=== PATIENT | female | born 1990 | race Caucasian/White ===

== ENCOUNTER → 2017-07-17 | Outpatient (CLI) | payer BC ==
[~2017-07-17] MED LIST: ACET-1256 PO; CETI10TA84 PO; NITR1CAP33 PO; OXYC-57 PO
[2017-07-17 12:34] LABS: BASO % 0.5 %; BASO ABS # 0.03 K/uL (0-0.2); COMPLETE YES; EOS % 1.6 %; HEMATOCRIT 38.3 % (37-47); IG% 0.2 %; LYMPH % 21.7 %; LYMPH ABS # 1.26 K/uL (1.2-3.4); MEAN CELL VOLUME 91.2 fL (80-100); MEAN CORPUSCULAR HEMOGLOBIN 31.7 pg (25-34); MEAN CORPUSCULAR HGB CONC 34.7 g/dl (32-36); MEAN PLATELET VOLUME 10.8 fL (7.4-10.4); MONO % 7.8 %; NEUT % 68.2 %; PLATELET COUNT 193 K/uL (130-400)
--- NOTE | 2017-07-17 12:38 | DIAGNOSTIC IMAGING REPORT ---
CHEST 2 VIEWS ROUTINE, KUB HISTORY: 27 years-old Female N20.1 Right ureteral [id number] acute right-sided flank pain COMPARISON: None available TECHNIQUE: Frontal and lateral views of the chest with single view of the abdomen FINDINGS: CHEST: Cardiac silhouette is within normal limits. No pneumothorax, pleural effusion or focal airspace consolidation. No overt pulmonary edema. The bones of the chest are grossly intact. ABDOMEN: There is moderate stool burden of the right hemicolon. Nonobstructive bowel gas pattern without pneumoperitoneum. No fracture. There is a linear 6 x 2 mm calcification of the right hemipelvis. No calculi are seen within the region of the kidneys. No organomegaly. IMPRESSION: 1. 6 mm linear calcification of the right hemipelvis suggests a distal right ureteral calculus. 2. Nonobstructive bowel gas pattern. 3. No acute cardiopulmonary process. The above report was generated using voice recognition software. It may contain grammatical, syntax or spelling errors. Electronically signed by: Nam Shay M.D. 07/17/2017 12:37 PM Dictated Date/Time: 07/17/2017 12:33 PM
--- NOTE | 2017-07-17 12:38 | DIAGNOSTIC IMAGING REPORT ---
CHEST 2 VIEWS ROUTINE, KUB HISTORY: 27 years-old Female N20.1 Right ureteral [id number] acute right-sided flank pain COMPARISON: None available TECHNIQUE: Frontal and lateral views of the chest with single view of the abdomen FINDINGS: CHEST: Cardiac silhouette is within normal limits. No pneumothorax, pleural effusion or focal airspace consolidation. No overt pulmonary edema. The bones of the chest are grossly intact. ABDOMEN: There is moderate stool burden of the right hemicolon. Nonobstructive bowel gas pattern without pneumoperitoneum. No fracture. There is a linear 6 x 2 mm calcification of the right hemipelvis. No calculi are seen within the region of the kidneys. No organomegaly. IMPRESSION: 1. 6 mm linear calcification of the right hemipelvis suggests a distal right ureteral calculus. 2. Nonobstructive bowel gas pattern. 3. No acute cardiopulmonary process. The above report was generated using voice recognition software. It may contain grammatical, syntax or spelling errors. Electronically signed by: Nam Shay M.D. 07/17/2017 12:37 PM Dictated Date/Time: 07/17/2017 12:33 PM
[2017-07-17 13:19] LABS: BLOOD UREA NITROGEN 11 mg/dl (7-18); BUN/CREATININE RATIO 17.4 (10-20); CARBON DIOXIDE 22 mmol/L (21-32); CHLORIDE 109 mmol/L (98-107); CREATININE 0.65 mg/dl (0.60-1.20); POTASSIUM 3.9 mmol/L (3.5-5.1); SODIUM 140 mmol/L (136-145)
== END | disposition home or self-care (01) ==
LOC: C.CPL 11:39
PROVIDERS: ATTEND Nurse Practitioner Adult Health
DX: N20.1 Calculus of ureter (principal)

== ENCOUNTER → 2017-07-26 | Day surgery (SDC) | payer BC ==
[2017-07-23 13:02] VITALS: Ht 167.6 cm; Wt 56.8 kg
[~2017-07-26] VITALS: Ht 167.6 cm; Wt 56.8 kg
[~2017-07-26] MED LIST changes: +ATROPINE SULFATE 0.1 MG/ML 5ML SYR IV PRN; +CIPROFLOXACIN 400MG / D5W IV SCH; +DEXAMETHASONE SOD INJ 4 MG/ML VIAL ONE; +EpHEDrine SULFATE 50MG/5ML SYR ONE; +EpHEDrine SULFATE INJ 50 MG/ML AMP IV PRN; +FENTANYL CITRATE INJ 50 MCG/1 ML 2 ML VIAL IV PRN; +FENTANYL CITRATE INJ 50 MCG/1 ML 2 ML VIAL ONE; +LACTATED RINGER'S 1000ML 1,000 ML IV SCH; +LIDOCAINE HCL 2% 2 ML VIAL (20MG/ML) ONE; +MIDAZOLAM HCL 1 MG/ML 2ML VIAL ONE; +ONDANSETRON INJ 2 MG/ML 2 ML VIAL IV PRN; +ONDANSETRON INJ 2 MG/ML 2 ML VIAL ONE; +PROMETHAZINE HCL INJ 6.25 MG in SODIUM CHLORIDE 0.9% 50ML 50 ML IV PRN; +PROPOFOL IV EMULSION 10 MG/ML 20 ML VIAL IV ONE
--- NOTE | 2017-07-26 08:18 | DIAGNOSTIC IMAGING REPORT ---
KUB CLINICAL HISTORY: Right-sided ureteral calculus. FINDINGS: 2 AP supine abdominal radiographs are compared to study dated 07/17/2017 and correlated with abdominal CT dated 07/11/2017. There is a nonobstructed abdominal bowel gas pattern noting mild to moderate colonic fecal retention. There is unchanged appearance of a 7 mm distal right ureteral calculus as compared to previous. No additional calcifications are seen projecting over either kidney. The bony structures appear intact. IMPRESSION: Unchanged appearance of a 7 mm distal right ureteral calculus as compared to 07/17/2017. Electronically signed by: Jagdish Emanuel M.D. 07/26/2017 8:17 AM Dictated Date/Time: 07/26/2017 8:15 AM
--- NOTE | 2017-07-26 09:25 | History & Physical Bridge - SC ---
H&P Re-Evaluation Bridge Note: I have examined the patient, reviewed the History & Physical and in the interval since the performance of the History & Physical I have noted the following changes of clinical significance: No changes noted
--- NOTE | 2017-07-26 10:31 | Discharge Instructions-SurgCtr ---
Discharge Instructions Date of Service Jul 26, 2017. Visit Reason for Visit: Stones Discharge Discharge Diagnosis / Problem: post op r ureteral eswl Discharge Goals Goal(s): Decrease discomfort, Improve disease control Activity Recommendations Activity Limitations: per Instructions/Follow-up section (no driving on narcotics) Anesthesia . Post Anesthesia Instructions: If you have had General Anesthesia or IV Sedation: * Do not drive today. * Resume driving when surgeon permits. * Do not make important decisions or sign legal documents today. * Call surgeon for: 1. Temperature elevations greater than 101 degrees F. 2. Uncontrollable pain. 3. Excessive bleeding. 4. Persistent nausea and vomiting. 5. Medication intolerance (nausea, vomiting or rash). * For nausea and vomiting use only clear liquids such as: tea, soda, bouillon until nausea subsides, then gradually increase diet as tolerated. * If you have any concerns or questions, call your surgeon's office. If physician is unavailable and it is an emergency, call 911 or go to the nearest emergency room. . Diet Recommendations Home Diet: resume previous diet Procedures Procedures Performed: Right Extracorporeal Shock Wave Lithotripsy Pending Studies Studies pending at discharge: no Medical Emergencies . Who to Call and When: Medical Emergencies: If at any time you feel your situation is an emergency, please call 911 immediately. . Non-Emergent Contact Non-Emergency issues call your: Urologist . . "Provider Documentation" section prepared by João Washington. .
[2017-07-26 11:11] VITALS: TEMP 36.4
[2017-07-26 11:39] VITALS: BP 103/62; PULSE 68; O2SAT 100
--- NOTE | 2017-07-26 11:49 | Anesthesia Progress Nt - [facility] ---
Anesthesia Post Op Note Date & Time Jul 26, 2017 at 11:49 Vital Signs Pain Intensity: 0 Vital Signs Past 12 Hours Date Time Temp Pulse Resp B/P (MAP) Pulse Ox O2 Delivery O2 Flow Rate FiO2 07/26/17 11:39 68 16 103/62 (76) 100 Room Air 07/26/17 11:11 36.4 76 16 109/72 (84) 100 Room Air 07/26/17 11:03 92 19 100 07/26/17 11:03 85 19 07/26/17 11:02 78 17 07/26/17 11:02 76 17 100 07/26/17 11:01 120/72 07/26/17 11:00 36.9 84 16 120/72 100 Room Air 07/26/17 10:57 88 17 07/26/17 10:57 88 17 99 07/26/17 10:56 123/80 07/26/17 10:52 70 12 07/26/17 10:52 68 12 100 07/26/17 10:51 113/71 07/26/17 10:47 85 16 100 07/26/17 10:47 83 16 07/26/17 10:46 117/65 07/26/17 10:42 82 17 07/26/17 10:42 79 17 100 07/26/17 10:41 112/65 07/26/17 10:37 80 32 100 07/26/17 10:37 86 32 07/26/17 10:36 104/54 07/26/17 10:32 79 19 07/26/17 10:32 76 19 100 07/26/17 10:31 120/56 07/26/17 10:28 115/71 07/26/17 10:27 36.9 90 16 115/71 100 Mask 8 07/26/17 08:12 37.1 78 22 118/76 (90) 98 Room Air Notes Mental Status: alert / awake / arousable, participated in evaluation Pt Amnestic to Procedure: Yes Nausea / Vomiting: adequately controlled Pain: adequately controlled Airway Patency, RR, SpO2: stable & adequate BP & HR: stable & adequate Hydration State: stable & adequate Anesthetic Complications: no major complications apparent
--- NOTE | 2017-07-26 15:36 | OPERATIVE REPORT ---
DATE OF OPERATION: 07/26/2017 PREOPERATIVE DIAGNOSIS: Distal right ureteral stone. POSTOPERATIVE DIAGNOSIS: Same. PROCEDURE PERFORMED: Right ureteral ESWL. INDICATIONS: The patient is a 27-year-old female who has a 6 x 4 mm distal stone who presented for elective lithotripsy. DESCRIPTION OF THE PROCEDURE: The patient was taken to the operating room. She was placed in supine position. She had Venodyne stockings placed and she was given preoperative antibiotics. The stone was localized from above and she received 3000 shocks, the majority are over half at level 6. At the end of the procedure, she was transferred to the recovery room in stable condition. I attest to the content of the Intraoperative Record and any orders documented therein. Any exception s are noted below.
== END ==
LOC: X.SURG 07:32
PROVIDERS: ATTEND Urology
DX: N20.1 Calculus of ureter (principal); Z87.442 Personal history of urinary calculi; Z83.3 Family history of diabetes mellitus; Z84.1 Family history of disorders of kidney and ureter; Z82.49 Family history of ischemic heart disease and other diseases of the circulatory system

== ENCOUNTER → 2017-08-16 | Day surgery (SDC) | payer BC ==
[2017-08-15 07:51] VITALS: Ht 167.6 cm; Wt 56.8 kg
--- NOTE | 2017-08-15 12:13 | DIAGNOSTIC IMAGING REPORT ---
KUB HISTORY: N20.0 Calculus of kidney [id number] COMPARISON: KUB 07/26/2017. FINDINGS: The bowel gas pattern is unremarkable. There are no dilated loops of small bowel to suggest an obstruction. The renal shadows are partially obscured by overlying bowel gas. No definite renal calculi identified. No ureteral calculi. Specifically, the curvilinear calcification within the right deep pelvis is no longer present. No pneumoperitoneum or pneumatosis. IMPRESSION: No renal or ureteral stones identified by conventional radiographic technique. Electronically signed by: Tyson Carter M.D. 08/15/2017 12:12 PM Dictated Date/Time: 08/15/2017 12:10 PM
[~2017-08-16] VITALS: Ht 167.6 cm; Wt 56.8 kg
[~2017-08-16] MED LIST changes: -ATROPINE SULFATE 0.1 MG/ML 5ML SYR IV PRN; +CIPROFLOXACIN / D5W 400 MG IV SCH; -CIPROFLOXACIN 400MG / D5W IV SCH; -DEXAMETHASONE SOD INJ 4 MG/ML VIAL ONE; -EpHEDrine SULFATE 50MG/5ML SYR ONE; -EpHEDrine SULFATE INJ 50 MG/ML AMP IV PRN; -FENTANYL CITRATE INJ 50 MCG/1 ML 2 ML VIAL IV PRN; -FENTANYL CITRATE INJ 50 MCG/1 ML 2 ML VIAL ONE; -LIDOCAINE HCL 2% 2 ML VIAL (20MG/ML) ONE; -MIDAZOLAM HCL 1 MG/ML 2ML VIAL ONE; -NITR1CAP33 PO; -ONDANSETRON INJ 2 MG/ML 2 ML VIAL IV PRN; -ONDANSETRON INJ 2 MG/ML 2 ML VIAL ONE; -PROMETHAZINE HCL INJ 6.25 MG in SODIUM CHLORIDE 0.9% 50ML 50 ML IV PRN; -PROPOFOL IV EMULSION 10 MG/ML 20 ML VIAL IV ONE
== END | disposition home or self-care (01) ==
LOC: EDSTATUS 10:00 → C.PAT 16:05
PROVIDERS: ATTEND Urology
DX: N20.0 Calculus of kidney (principal); Z53.8 Procedure and treatment not carried out for other reasons